=== PATIENT | male | born 1940 | race Hispanic/Latino ===

== ENCOUNTER 2019-07-06 08:58 | Emergency (ER) | payer OTHER ==
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
[2019-07-06 10:26] VITALS: TEMP 97.8; O2SAT 99
[2019-07-06 10:27] VITALS: BP 150/71
== END 2019-07-06 10:20 | disposition home or self-care (01) ==
LOC: ER 08:58
DX: G89.11 Acute pain due to trauma (principal); M62.830 Muscle spasm of back; S32.040A Wedge compression fracture of fourth lumbar vertebra, initial encounter for closed fracture; V49.9XXA Car occupant (driver) (passenger) injured in unspecified traffic accident, initial encounter
CPT/HCPCS: 70450; 71045; 72125; 72131; 99283

== ENCOUNTER 2020-11-14 07:09 | Day surgery (SDC) | payer OTHER ==
[2020-11-10 09:10] LABS: Absolute Lymphocytes (CBC) 1.4 K/uL (0.7-4.9); Basophils % 1.3 % (0-1.3); Hematocrit 39.6 % (39.6-49.0); Lymphocytes % 35.9 % (15.3-44.8); MPV 8.5 fL (7.6-11.3); RBC Red Blood Cell Count 4.19 M/uL (4.33-5.43)
[2020-11-10 09:21] LABS: Potassium 3.8 mmol/L (3.5-5.1)
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
[2020-11-14] MEDS ORDERED: CEFAZOLIN/SWI 1gm 1 GM/10 ML SYR ONE (08:40)
[2020-11-14] MEDS ORDERED: Ringers Lactate 1,000 ML IV ONE ×2 (08:40→11:36)
[2020-11-14] MEDS ORDERED: propofoL 200 MG/20 ML VIAL IV ONE (09:16)
[2020-11-14] MEDS ORDERED: FENTANYL CITR 100 MCG/2 ML ONE (09:16)
[2020-11-14] MEDS ORDERED: LIDOCAINE 1% MPF 5 ML VIAL ONE (09:16)
[2020-11-14] MEDS ORDERED: ONDANSETRON 4 MG/2 ML VIAL ONE (09:17)
--- NOTE | 2020-11-14 10:08 | P.BOP ---
Preoperative diagnosis: tender reducible right inguinal hernia Postoperative diagnosis: same Primary procedure: open repair tender reducible right inguinal hernia with mesh Wallcovering Texturer: Vickie Godwin (Reina) Estimated blood loss: <10cc Specimen: none Anesthesia: General Complications: None Drain(s): Other (large mesh plug anfd sheet) Transferred to: Recovery Room Condition: Good
[2020-11-14 11:20] VITALS: BP 145/67; TEMP 96.8; O2SAT 96
--- NOTE | 2020-11-14 12:17 | OP ---
Date of Procedure: 11/14/2020 Surgeon: German Zimmerman MD Gasoline Locomotive Crane Operator: Vickie Hendricks. Preoperative Diagnosis: Tender reducible right inguinal hernia. Postoperative Diagnosis: Tender reducible right inguinal hernia. Procedure: Open repair of tender reducible right inguinal hernia with mesh. Estimated Blood Loss: Less than 10 mL. Anesthesia: General plus local. Mesh: Large mesh plug and sheath. Indication: This is the case of an 80-year-old patient, who comes to us with a tender large right in guinal hernia. The patient has history of midline incision in the past. With all this size and midl ine incision, after discussing pros and cons, the patient has elected open repair of right inguinal h ernia with mesh with benefits, alternatives, and risks including, but not limited to infection, bleed ing, damage to adjacent structures, anesthesia complication, recurrence, chronic pain, chronic numbne ss, SC and even . He also understands we cannot relieve any symptoms. He might need more than one surgical intervention. He understood, signed a consent. He understand the pros and cons of mesh placement discussed with him and he allowed and consented for mesh placement. Procedure In Detail: The patient was brought to the operating room and placed in supine position. A nesthesia was done without complication. A time-out was called. Right inguinal and abdomen were pre pped and draped in a sterile fashion. Local anesthetic was applied followed by sharp incision of the skin. Incision was carried down to Lázaro fascia until we find external oblique aponeurosis and was opened in direction of the fibers. The ilioinguinal nerve and iliohypogastric nerve were identified after we opened the external oblique fibers and protected behind the external oblique aponeurosis. [place] was placed around the spermatic cord. We proceeded to carefully identify the hernia sac and it was carefully imbricated. After that, I proceeded to carefully place a large mesh over the area, secured in place with VersaTack. Then, after that, I placed a mesh sheet securing that to the pubic tubercle, shelving edge of inguinal ligament, transversalis fascia, and the tails looped around the s permatic cord. The area was irrigated. No bleeding. We placed the ilioinguinal nerve and iliohypog astric nerve back into the inguinal canal, reconstructed the superficial inguinal ring and closed the external oblique aponeurosis. The area was irrigated. Lázaro fascia closed with 3-0 chromic, subcu taneous tissue closed with 3-0 chromic and skin with eliel. Sponge count and instrument counts cor rect. The patient tolerated the procedure well. The patient was sent to recovery in stable conditio n. At the end of the case, testicles were in the scrotum. BETTY/AYESHA Voice ID: [id number] Report ID: [id number]
--- NOTE | 2020-11-14 12:21 | DS ---
Date of Discharge: 11/14/2020 Diagnosis: Tender reducible right inguinal hernia. Procedure: Open repair of tender reducible right inguinal hernia with mesh. Disposition: Home. Discharge Instructions: Activity as tolerated. No heavy lifting. Plan: Follow up in my office in 1 week. Call for appointment at [phone]. Keep area dry for 48 ron rs, then may shower. Cold compress of the right inguinal region for 24 hours. Medications: Include Tylenol No.3 q.4 hours p.r.n. pain, Bactrim DS p.o. b.i.d. BETTY/AYESHA Voice ID: [id number] Report ID: [id number]
== END 2020-11-14 11:58 | disposition home or self-care (01) ==
LOC: OR 07:09
PROVIDERS: ATTEND Surgery
PROC: 0YU50JZ Supplement Right Inguinal Region with Synthetic Substitute, Open Approach (ICD-10-PCS; principal; 2020-11-14 09:00)
DX: K40.90 Unilateral inguinal hernia, without obstruction or gangrene, not specified as recurrent (principal); I10 Essential (primary) hypertension; E78.00 Pure hypercholesterolemia, unspecified; Z86.73 Personal history of transient ischemic attack (TIA), and cerebral infarction without residual deficits; Z20.822 Contact with and (suspected) exposure to COVID-19
CPT/HCPCS: 93005; 85025; 80048; 36415; 71046; 49505; U0002; J2704; J3010; J0690; J7120 ×2; J2405